=== PATIENT | male | born 1950 | race Caucasian/White ===

== ENCOUNTER 2018-01-08 09:46 | Day surgery (SDC) | payer MEDICARE, BC ==
[~2018-01-08] VITALS: Ht 177.8 cm; Wt 93.0 kg
--- NOTE | ~2018-01-08 | OP ---
PATIENT NAME: JOSE ALVES MEDICAL RECORD: [id number] :54 LOCATION:D.OPS ADMISSION DATE: SURGEON: JUNIOR NUÑEZ MD DATE OF OPERATION: 01/08/2018 PREOPERATIVE DIAGNOSIS: Symptomatic left inguinal hernia. POSTOPERATIVE DIAGNOSES: 1. Symptomatic indirect left inguinal hernia. 2. Symptomatic pantaloon (indirect and direct components) left inguinal hernia. 3. Left cord lipoma. SURGEON: Junior Nuñez MD BLOOD LOSS: Minimal. ANESTHESIA: General. COMPLICATIONS: None. The risks, possible complications, and alternatives to the procedure were explained to the patient. He elects to proceed. The discussion specifically included, but was limited to, bleeding, requiring emergency reoperation; infection; recurrence of the hernia; chronic pain. I saw the patient in the holding area. I marked the site. The patient was conveyed to the operating room. Preciado catheter was inserted. The abdomen, genitals, and upper thigh were sterilely prepped and draped. A transverse incision was accomplished in the left groin. Sharp dissection was carried down through skin and subcutaneous tissue. Sarah's fascia was incised. Immediately, I identified a large hernia sac. The patient had essentially blown out the entire left inguinal floor. I dissected down through the hernia sac. I reduced the hernia sac. An indirect sac was reduced in its entirety. There was a direct component as well, which was reduced in its entirety. Once I was satisfied with the preperitoneal dissection, I cut 2 ovals of polypropylene mesh and sutured the 2 ovals together, one on top of the other, with running #1 Surgidacs. I placed the mesh in the preperitoneal space. Once I was satisfied with placement of mesh, I identified some attenuated internal oblique musculature and I closed this over the mesh, incorporating a portion of the mesh with these horizontal mattress #0 Surgidacs. I was still very concerned about this repair and I fear that it might blow up due to the very attenuated muscle. I then elected to create another muscle layer, so this was a sandwich mesh. I took another piece of polypropylene mesh and I keyholed it. I placed it around the cord structures. I then identified a cord lipoma. This was excised with the electrocautery and sent as a separate specimen. The tails of the polypropylene mesh were sutured together with multiple interrupted horizontal mattress #0 Surgidacs. I then closed the external oblique aponeurosis over this keyhole mesh. I incorporated the mesh with few of the bites of the #0 Vicryl closure. I ensured that both testicles were descended. Sarah's fascia was approximated with interrupted 3-0 Vicryls. The subdermis was approximated with interrupted 3-0 Vicryls. The skin was approximated with a running intracuticular 4-0 OPERATIVE REPORT [id number] JOSE ALVES Vicryl. Benzoin and Steri-Strips were applied. The patient was then extubated and conveyed to postanesthesia care unit. The patient is going to be dismissed home with a narcotic analgesic. I will see the patient in the office in 2-3 weeks. TRANSINT:[id number] Voice Confirmation ID: [id number] DOCUMENT ID: [id number] JUNIOR NUÑEZ MD at 1717 CC: MICHELLE LANGFORD [id number] DICTATION DATE: 01/11/18 0959 SCIENTIFIC DATABASE CURATOR: 01/11/18 1148 [facility] 01/08/18 [facility] [address] [place] [address]
[2018-01-08 10:15] LABS: BASOPHILS 0.6 % (0-2); EOSINOPHILS 1.3 % (0-7); HEMATOCRIT 45.5 % (42.0-54.0); HEMOGLOBIN 15.6 g/dL (13.5-17.5); IMMATURE GRANULOCYTES 0.3 % (0-5); LYMPHOCYTES 24.3 % (15-50); MCH 30.6 pg (26.0-34.0); MCHC 34.3 g/dL (31.0-37.0); MCV 89.2 fL (80.0-100.0); MEAN PLATELET VOLUME 10.2 fL (7.4-10.4); MONOCYTES 8.3 % (2-11); NEUTROPHILS 65.2 % (40-80); PLATELET COUNT 184 10x3/uL (130-400); RDW 12.7 % (11.5-14.5); WBC 6.8 10x3/uL (4.8-10.8)
[2018-01-08 10:25] LABS: CALC OSMOLALITY 287 mosm/kg (275-300); CARBON DIOXIDE 30.5 mmol/L (21.0-32.0); CHLORIDE - SERUM 106 mmol/L (98-107); GLUCOSE 106 mg/dL (74-106); POTASSIUM - SERUM 4.1 mmol/L (3.5-5.1); SODIUM 143 mmol/L (136-145); UREA NITROGEN 22 mg/dL (7-18); eGFR NON AFRICAN AMERICAN 80 mL/min (90-120)
[2018-01-08 11:51] VITALS: BP 163/95; Ht 177.8 cm; Wt 93.0 kg
[2018-03-16] MEDS ORDERED: APRISO0.375 GM PO (10:14)
[2018-03-16] MEDS ORDERED: PROTONIX40 MG PO (10:14)
[2018-03-16] MEDS ORDERED: FLOMAX0.4 MG PO (10:15)
[2018-03-16] MEDS ORDERED: PROSCAR5 MG PO (10:15)
== END 2018-01-08 17:30 | disposition home or self-care (01) ==
LOC: D.OPS 09:46 → D.PAN 12:00 → D.OPS 12:00
PROVIDERS: Anesthesiology
DX: K40.90 Unilateral inguinal hernia, without obstruction or gangrene, not specified as recurrent (principal); D17.6 Benign lipomatous neoplasm of spermatic cord; Z01.812 Encounter for preprocedural laboratory examination

== ENCOUNTER 2018-01-10 11:55 | Emergency (ER) | payer MEDICARE, BC ==
[~2018-01-10] VITALS: Ht 177.8 cm; Wt 93.2 kg
[2018-01-10 12:09] VITALS: Ht 177.8 cm; Wt 93.2 kg
[2018-01-10 13:01] VITALS: BP 138/88
[2018-03-16] MEDS ORDERED: APRISO0.375 GM PO (10:14)
[2018-03-16] MEDS ORDERED: PROTONIX40 MG PO (10:14)
[2018-03-16] MEDS ORDERED: FLOMAX0.4 MG PO (10:15)
[2018-03-16] MEDS ORDERED: PROSCAR5 MG PO (10:15)
== END 2018-01-10 13:00 | disposition home or self-care (01) ==
LOC: D.ER 11:55
DX: R33.8 Other retention of urine (principal)

== ENCOUNTER 2018-01-14 04:38 | Emergency (ER) | payer MEDICARE, BC ==
[~2018-01-14] VITALS: Ht 177.8 cm; Wt 93.2 kg
[2018-01-14 04:44] VITALS: Ht 177.8 cm; Wt 93.2 kg
[2018-01-14 05:40] LABS: APPEARANCE CLEAR (CLEAR); COLOR YELLOW (YELLOW); SPECIFIC GRAVITY 1.015 (1.005-1.020)
[2018-01-14 05:41] LABS: BILIRUBIN NEGATIVE (NEGATIVE); EPITHELIAL CELLS 0-5 /hpf (0-5); GLUCOSE NEGATIVE (NEGATIVE); KETONE NEGATIVE (NEGATIVE); NITRITE NEGATIVE (NEGATIVE); PROTEIN NEGATIVE (NEGATIVE); UROBILINOGEN NORMAL (NORMAL); WHITE CELLS - URINE 0-5 /hpf (0-5)
[2018-01-14 05:42] LABS: BACTERIA FEW /hpf (NONE SEEN); MUCUS <1+ /lpf (NONE SEEN)
[2018-01-14 05:46] VITALS: BP 135/83
[2018-03-16] MEDS ORDERED: PROTONIX40 MG PO (10:14)
[2018-03-16] MEDS ORDERED: APRISO0.375 GM PO (10:14)
[2018-03-16] MEDS ORDERED: PROSCAR5 MG PO (10:15)
[2018-03-16] MEDS ORDERED: FLOMAX0.4 MG PO (10:15)
== END 2018-01-14 05:58 | disposition home or self-care (01) ==
LOC: D.ER 04:38
PROVIDERS: Family Medicine
DX: R33.9 Retention of urine, unspecified (principal)

== ENCOUNTER → 2018-02-04 11:59 | Outpatient (CLI) | payer MEDICARE, BC ==
[2018-01-14 04:44] VITALS: BMI 29.4
[~2018-02-04 11:59] MED LIST: APRISO0.375 GM PO; FLOMAX0.4 MG PO; HYDROCODON-ACE1 EAC7 PO; PROSCAR5 MG PO; PROTONIX40 MG PO
== END | disposition home or self-care (01) ==
LOC: D.LABREF 11:59
DX: N39.0 Urinary tract infection, site not specified (principal)

== ENCOUNTER 2018-03-17 10:05 | Day surgery (SDC) | payer MEDICARE, BC ==
[2018-03-16 10:45] LABS: HEMATOCRIT 40.8 % (42.0-54.0); HEMOGLOBIN 13.4 g/dL (13.5-17.5); MCH 29.8 pg (26.0-34.0); MCHC 32.8 g/dL (31.0-37.0); MCV 90.7 fL (80.0-100.0); MEAN PLATELET VOLUME 10.1 fL (7.4-10.4); RBC 4.5 10x6/uL (4.20-6.10); RDW 12.9 % (11.5-14.5); WBC 5.6 10x3/uL (4.8-10.8)
[~2018-03-17] VITALS: Ht 177.8 cm; Wt 93.0 kg
--- NOTE | ~2018-03-17 | OP ---
PATIENT NAME: JOSE ALVES MEDICAL RECORD: [id number] :54 LOCATION:D.OPS ADMISSION DATE: SURGEON: JUNIOR MARTINEZ MD DATE OF OPERATION: 03/17/2018 SURGEON: Junior Martinez MD ANESTHESIA: General anesthesia by Riddhi Holguin CRNA. DIAGNOSIS: Urinary retention due to obstructive BPH. PROCEDURES: Cystoscopy. GreenLight laser transurethral resection of the prostate, power 80-120 torres, laser on time 26 minutes and 19 seconds, energy 148,073 kilojoules. FINDINGS: Obstructive BPH with trilobar hyperplasia. Single ureteral orifices bilaterally. Heavily trabeculated bladder with cellules and diverticula. No bladder tumors were seen. There was a small bladder stone seen. SPECIMENS: None. ESTIMATED BLOOD LOSS: Minimal. CLINICAL HISTORY: This is a 67-year-old male, who is in urinary retention. He has been on finasteride and tamsulosin for at least 2 months. Last week, we performed another voiding trial on him and he failed to void. He does not wish to continue waiting for the finasteride to take effect. He would like to have a GreenLight laser TURP. He is not allergic to any medications. He was given Ancef composition teacher to the OR. DESCRIPTION OF PROCEDURE: The patient was given induction of general anesthesia. He was placed in the dorsal lithotomy position and prepped and draped. The laser resectoscope was placed using a visual obturator. Penile urethra shows no strictures. The prostatic urethra shows a highly vascular prostate with trilobar hyperplasia. Going into the bladder, the bladder was heavily trabeculated with cellules and diverticula. The ureteral orifices were very difficult to see, but we did find them. A small stone was seen in the bladder also. With irrigation through the scope, the stone fell out of the bladder. We then introduced the laser fiber. Starting at 80 torres of power, we resected the area from the bladder neck to just proximal to the verumontanum. The prostate was rather vascular, especially the bladder neck and near the apex. With ongoing surgery, the area was coagulated and eventually ceased to bleed. Once the posterior wall was taken down as well as the median lobe, we then turned to each of the lateral lobes. They were taken down with 80 torres initially, but as the tissue started to dry out, we went to 100 torres and then eventually 120 torres. I started unroofing prostatic stones that were clearly in the plane between the BPH and the compressed pseudocapsule of the prostate. I did minimal to no resection of the anterior wall except to prevent bleeding. At the end of the procedure, he had a very wide open prostatic channel. The verumontanum was still intact and the ureteral orifices were difficult to see as usual. The procedure was terminated. A 20-Slovenian 3-way Preciado catheter was inserted into the bladder. The balloon was inflated with 30 cc of sterile water. The patient will be going home with an indwelling Preciado catheter. I will see him in followup in a few days' time for a voiding trial. OPERATIVE REPORT [id number] LONGJOSEVIRI SONG TRANSINT:[id number] Voice Confirmation ID: [id number] DOCUMENT ID: [id number] JUNIOR MARTINEZ MD at 1629 CC: [id number] DICTATION DATE: 03/17/18 1522 MARINE UNDERWRITER: 03/17/18 1534 [facility] [address] [place] [address]
[~2018-03-17 10:05] MED LIST changes: -HYDROCODON-ACE1 EAC7 PO
[2018-03-17 10:47] VITALS: Ht 177.8 cm; Wt 93.0 kg
[2018-03-17] MEDS ORDERED: HYDROCODON-ACE1 EAC7 PO (16:52)
== END 2018-03-17 17:15 | disposition home or self-care (01) ==
LOC: D.OPS 10:05 → D.PAN 12:15 → D.OPS 12:15 → D.PAN 12:30 → D.OPS 17:15
PROVIDERS: Anesthesiology
DX: N40.1 Benign prostatic hyperplasia with lower urinary tract symptoms (principal); R33.8 Other retention of urine; N13.8 Other obstructive and reflux uropathy; N32.89 Other specified disorders of bladder; N21.0 Calculus in bladder; N32.3 Diverticulum of bladder; Z01.812 Encounter for preprocedural laboratory examination

== ENCOUNTER → 2018-03-27 18:37 | Outpatient (CLI) | payer MEDICARE, BC ==
[2018-03-17 10:47] VITALS: BMI 29.4
[~2018-03-27 18:37] MED LIST changes: +HYDROCODON-ACE1 EAC7 PO
== END | disposition home or self-care (01) ==
LOC: D.LABREF 18:37 → EDBD 18:37
DX: R79.89 Other specified abnormal findings of blood chemistry (principal); R31.9 Hematuria, unspecified; D72.829 Elevated white blood cell count, unspecified

== ENCOUNTER → 2018-04-24 18:41 | Outpatient (CLI) | payer MEDICARE, BC ==
[2018-03-17 10:47] VITALS: BMI 29.4
== END | disposition home or self-care (01) ==
LOC: D.LABREF → EDBD 18:41 → D.LABREF 18:41
DX: R31.9 Hematuria, unspecified (principal); D72.829 Elevated white blood cell count, unspecified

== ENCOUNTER → 2018-05-13 17:40 | Outpatient (CLI) | payer MEDICARE, BC ==
[2018-03-17 10:47] VITALS: BMI 29.4
== END | disposition home or self-care (01) ==
LOC: D.LABREF 17:40
DX: D72.829 Elevated white blood cell count, unspecified (principal); R31.9 Hematuria, unspecified

== ENCOUNTER 2018-07-31 05:04 | Emergency (ER) | payer MEDICARE, BC ==
[~2018-07-31] VITALS: Ht 177.8 cm; Wt 93.2 kg
[2018-07-31 05:10] VITALS: Ht 177.8 cm; Wt 93.2 kg
[2018-07-31 05:40] LABS: BASOPHILS 0.4 % (0-2); HEMATOCRIT 43.4 % (42.0-54.0); HEMOGLOBIN 14.8 g/dL (13.5-17.5); IMMATURE GRANULOCYTES 0.3 % (0-5); LYMPHOCYTES 25.4 % (15-50); MCH 30.5 pg (26.0-34.0); MCHC 34.1 g/dL (31.0-37.0); MCV 89.5 fL (80.0-100.0); MEAN PLATELET VOLUME 10.6 fL (7.4-10.4); MONOCYTES 5.5 % (2-11); NEUTROPHILS 67.4 % (40-80); PLATELET COUNT 193 10x3/uL (130-400); RBC 4.85 10x6/uL (4.20-6.10); RDW 13.1 % (11.5-14.5); WBC 12.5 10x3/uL (4.8-10.8)
[2018-07-31 05:45] LABS: APPEARANCE HAZY (CLEAR); BILIRUBIN NEGATIVE (NEGATIVE); COLOR YELLOW (YELLOW); GLUCOSE NEGATIVE (NEGATIVE); KETONE NEGATIVE (NEGATIVE); NITRITE POSITIVE (NEGATIVE); PROTEIN TRACE mg/dL (NEGATIVE); UROBILINOGEN NORMAL (NORMAL)
[2018-07-31 05:46] LABS: BACTERIA MANY /hpf (NONE SEEN); EPITHELIAL CELLS RARE /hpf (0-5); RED CELLS - URINE 0-5 /hpf (0-5); WHITE CELLS - URINE 25-50 /hpf (0-5)
[2018-07-31 06:04] LABS: ALBUMIN 3.8 g/dL (3.4-5.0); ANION GAP 19.8 mmol/L (8-16); BILIRUBIN - TOTAL 0.88 mg/dL (0.2-1.3); CALCIUM 8.8 mg/dL (8.5-10.1); CARBON DIOXIDE 23.3 mmol/L (21.0-32.0); CREATININE - SERUM 1.4 mg/dL (0.6-1.3); POTASSIUM - SERUM 3.1 mmol/L (3.5-5.1); PROTEIN - SERUM 7.5 g/dL (6.4-8.2)
[2018-07-31] MEDS ORDERED: KEFLEX500 MG PO (06:23)
[2018-07-31] MEDS ORDERED: MACROBID100 MG PO (06:23)
[2018-07-31] MEDS ORDERED: FLOMAX0.4 MG PO (06:23)
[2018-07-31] MEDS ORDERED: ZOFRAN ODT4 MG/UDTAB PO (06:23)
[2018-07-31] MEDS ORDERED: HYDROCODON-ACE1 EA10 PO (06:23)
[2018-07-31 06:58] VITALS: BP 133/73
== END 2018-07-31 06:55 | disposition home or self-care (01) ==
LOC: D.ER 05:04
PROVIDERS: Family Medicine
DX: N23 Unspecified renal colic (principal); N20.1 Calculus of ureter